=== PATIENT | female | born 1940 | race Two or more races ===

== ENCOUNTER 2017-03-27 16:02 | Inpatient (IN) | payer OTHER ==
[~2017-03-27] VITALS: Ht 162.6 cm; Wt 72.6 kg
[~2017-03-27 16:02] MED LIST: AMBIEN10 MG PO; CEFADROXIL500 MG PO; CYMBALTA20 MG; ENALAPRIL MALEA20 MG PO; ETODOLAC500 M1; FOLIC + B12 TAB1 TAB PO; FOLIC ACID1 MG PO; GLIPIZIDE5 MG PO; LEVOTHYROXINE25 MCG PO; LIRICA; MAGNESIUM SULFATE 4 MEQ/ML IJ; OPCON-A EYE DRO15 ML; PENTASA500 MG PO; PEPCID40 MG/5 ML; PERCOCET 5/3251 TAB PO; PREDNISONE10 MG PO; PROTONIX40 MG PO; TRAMADOL HCL50 MG; VASOTEC5 MG PO; XANAX0.25 MG; XARELTO10 MG PO; ZANTAC300 MG PO; [UNRECOGNIZED DRUG - REMARK]
[2017-04-09] MEDS ORDERED: FOLIC ACID1 MG PO (09:47)
[2017-04-09] MEDS ORDERED: CYMBALTA30 MG PO (09:47)
[2017-04-09] MEDS ORDERED: Neurin-Sl Tablet Sl SL (09:47)
[2017-04-09] MEDS ORDERED: LIDODERM1 EACH TOP (09:47)
[2017-04-09] MEDS ORDERED: LISINOPRIL20 MG PO (09:47)
[2017-04-09] MEDS ORDERED: LEVOTHYROXINE25 MCG PO (09:47)
[2017-04-09] MEDS ORDERED: ZANTAC300 MG PO (09:47)
[2017-04-09] MEDS ORDERED: AMBIEN10 MG PO (09:47)
[2017-04-09] MEDS ORDERED: PREDNISONE10 MG PO (09:47)
[2017-04-09] MEDS ORDERED: PYRIDOXINE HCL100 M1 PO (09:47)
== END 2017-04-09 13:17 | disposition home or self-care (01) | DRG 264 ==
LOC: ER 16:02 → MEDJ 19:48
PROC: 0JBR0ZZ Excision of Left Foot Subcutaneous Tissue and Fascia, Open Approach (ICD-10-PCS; principal; 2017-03-31)
PROC: 02HV33Z Insertion of Infusion Device into Superior Vena Cava, Percutaneous Approach (ICD-10-PCS; 2017-04-01)
DX: E11.52 Type 2 diabetes mellitus with diabetic peripheral angiopathy with gangrene (principal); I96 Gangrene, not elsewhere classified; F33.8 Other recurrent depressive disorders; N17.8 Other acute kidney failure; N18.4 Chronic kidney disease, stage 4 (severe); E27.3 Drug-induced adrenocortical insufficiency; E11.65 Type 2 diabetes mellitus with hyperglycemia; E11.621 Type 2 diabetes mellitus with foot ulcer; L97.524 Non-pressure chronic ulcer of other part of left foot with necrosis of bone; E03.8 Other specified hypothyroidism; B96.4 Proteus (mirabilis) (morganii) as the cause of diseases classified elsewhere; B95.7 Other staphylococcus as the cause of diseases classified elsewhere; Z79.52 Long term (current) use of systemic steroids; E86.0 Dehydration; E83.42 Hypomagnesemia; I12.9 Hypertensive chronic kidney disease with stage 1 through stage 4 chronic kidney disease, or unspecified chronic kidney disease; E11.22 Type 2 diabetes mellitus with diabetic chronic kidney disease; M81.0 Age-related osteoporosis without current pathological fracture; E87.6 Hypokalemia; T38.0X5A Adverse effect of glucocorticoids and synthetic analogues, initial encounter

== ENCOUNTER 2018-11-26 19:39 | Emergency (ER) | payer OTHER ==
[~2018-11-26] VITALS: Ht 157.5 cm; Wt 52.2 kg
[~2018-11-26 19:39] MED LIST changes: +CYMBALTA30 MG PO; +LIDODERM1 EACH TOP; +LISINOPRIL20 MG PO; +Neurin-Sl Tablet Sl SL; +PYRIDOXINE HCL100 M1 PO
[2018-11-26] MEDS ORDERED: PENTAZOCINE-NA1 EACH (19:51)
[2018-11-26] MEDS ORDERED: ACID CONTROL150 MG (19:52)
[2018-11-26] MEDS ORDERED: CANDESARTAN CIL16 MG (19:52)
[2018-11-26] MEDS ORDERED: PREDNISOLONE SO30 MG (19:52)
[2018-11-26] MEDS ORDERED: CYMBALTA60 MG (19:52)
[2018-11-26] MEDS ORDERED: CLONAZEPAM0.5 M1 PO (19:53)
[2018-11-26] MEDS ORDERED: LIPITOR20 MG (19:53)
[2018-11-26] MEDS ORDERED: LEVO-T25 MCG (19:53)
[2018-11-26] MEDS ORDERED: KAPSPARGO SPRIN25 MG (19:53)
[2018-11-26] MEDS ORDERED: CLOPIDOGREL BIS75 MG (19:53)
[2018-11-26] MEDS ORDERED: METFORMIN HCL500 MG (19:54)
== END 2018-11-26 22:35 | disposition home or self-care (01) ==
LOC: ER 19:39
DX: K52.89 Other specified noninfective gastroenteritis and colitis (principal); L03.116 Cellulitis of left lower limb

== ENCOUNTER 2018-11-28 15:52 | Inpatient (IN) | payer OTHER ==
[~2018-11-28] VITALS: Ht 160 cm; Wt 52.2 kg
[~2018-11-28 15:52] MED LIST changes: +ACID CONTROL150 MG; +CANDESARTAN CIL16 MG; +CILOSTAZOL100 MG PO; +CLONAZEPAM0.5 M1 PO; +CLONAZEPAM0.5 MG PO; +CLOPIDOGREL BIS75 MG; +CYMBALTA60 MG; +CYMBALTA60 MG PO; +KAPSPARGO SPRIN25 MG; +LEVO-T25 MCG; +LEVOTHYROXINE50 MCG PO; +LIDODERM1 EACH ID; +LIPITOR20 MG; +LOPRESSOR25 MG PO; +METFORMIN HCL500 MG; +NITRO-BID1 G1 TD; +PANTOPRAZOLE SO40 MG PO; +PENTAZOCINE-NA1 EACH; +PREDNISOLONE SO30 MG; +SLOW-MAG64 M1 PO; +SYNTHROID50 MCG PO
--- NOTE | 2018-11-28 16:15 | NUR ---
PACIENTE ALERTA Y ORIENTADA POR ELOY ESFERAS QUIEN VENIR POR EDEMA EN PIE LT. REFIERE NO TRAUMA.
--- NOTE | 2018-11-28 18:32 | NUR ---
PACIENTE ALERTA Y ORIENTADA POR ELOY ESFERAS. MS. CLANCY ORIENTA A PACIENTE SOBRE PROCEDIMEINTO Y TX, REFIERE ENTENDER. EXTRAE MUESTRAS DE LABORATOIRO CON MEDIDAS ASEPTICAS Y ADMINISTRA MEDICAMENTOS MÓNICA ORDEN MEDICA.
== END 2018-12-02 17:23 | DRG 638 ==
LOC: ER 15:52 → SURH 22:58 → MEDJ 12-02 13:42
PROVIDERS: ADMIT Specialist
PROC: B44HZZZ Ultrasonography of Bilateral Lower Extremity Arteries (ICD-10-PCS; principal; 2018-11-28)
PROC: 8E0ZXY6 Isolation (ICD-10-PCS; 2018-11-29)
PROC: 30233N1 Transfusion of Nonautologous Red Blood Cells into Peripheral Vein, Percutaneous Approach (ICD-10-PCS; 2018-11-30)
DX: E11.628 Type 2 diabetes mellitus with other skin complications (principal); L03.116 Cellulitis of left lower limb; K50.10 Crohn's disease of large intestine without complications; E27.49 Other adrenocortical insufficiency; B37.41 Candidal cystitis and urethritis; E03.8 Other specified hypothyroidism; E11.22 Type 2 diabetes mellitus with diabetic chronic kidney disease; D63.8 Anemia in other chronic diseases classified elsewhere; I12.9 Hypertensive chronic kidney disease with stage 1 through stage 4 chronic kidney disease, or unspecified chronic kidney disease; I77.89 Other specified disorders of arteries and arterioles; N18.3 Chronic kidney disease, stage 3 (moderate); F32.89 Other specified depressive episodes; A49.02 Methicillin resistant Staphylococcus aureus infection, unspecified site; Z79.4 Long term (current) use of insulin; Z79.52 Long term (current) use of systemic steroids; Z88.6 Allergy status to analgesic agent

== ENCOUNTER 2018-12-13 12:39 | Emergency (ER) | payer OTHER ==
[~2018-12-13] VITALS: Ht 152.4 cm; Wt 52.2 kg
== END 2018-12-13 22:01 | disposition home or self-care (01) ==
LOC: ER 12:39
DX: M10.031 Idiopathic gout, right wrist (principal)

== ENCOUNTER 2019-06-04 17:53 | Emergency (ER) | payer OTHER ==
[~2019-06-04] VITALS: Ht 157.5 cm; Wt 54.9 kg
[2019-06-04] MEDS ORDERED: LIDOPATCH1 EACH (18:16)
== END 2019-06-04 21:34 | disposition home or self-care (01) ==
LOC: ER 17:53
DX: N39.0 Urinary tract infection, site not specified (principal); R19.7 Diarrhea, unspecified; E86.0 Dehydration; R10.84 Generalized abdominal pain

== ENCOUNTER 2019-10-11 12:43 | Inpatient (IN) | payer OTHER ==
[~2019-10-11] VITALS: Ht 157.5 cm; Wt 54.4 kg
[~2019-10-11 12:43] MED LIST changes: +LIDOPATCH1 EACH
[2019-10-11] MEDS ORDERED: PENTOXIFYLLINE400 MG (13:06)
[2019-10-11] MEDS ORDERED: [UNRECOGNIZED DRUG - OTHER] (13:06)
--- NOTE | 2019-10-11 13:07 | NUR ---
SE RECIBE PTE ALERTA Y ORIENTADA X3,REFIERE TENER DIARREAS ,DOLOR ABOMINAL , VOMITO.
--- NOTE | 2019-10-11 14:23 | NUR ---
SE EDCUAA PTE SOBRE TX MEDICO ESTA REFIERE ENTENDER. SE MENDOZA MUESTRAS DE LAB UTILIZANDO MEDIAS ASEPTICAS. SE COLOCA H/L A PTE Y SE CONTINUA MONITORIANDO POR CAMBIOS.
== END 2019-10-21 12:48 | disposition home or self-care (01) | DRG 683 ==
LOC: ER 12:43 → MEDJ 17:05
PROVIDERS: ADMIT Internal Medicine; ATTEND Internal Medicine
PROC: BW21Y0Z Computerized Tomography (CT Scan) of Abdomen and Pelvis using Other Contrast, Unenhanced and Enhanced (ICD-10-PCS; principal; 2019-10-12)
PROC: 8E0ZXY6 Isolation (ICD-10-PCS; 2019-10-13)
DX: N17.8 Other acute kidney failure (principal); E27.49 Other adrenocortical insufficiency; K50.90 Crohn's disease, unspecified, without complications; F33.9 Major depressive disorder, recurrent, unspecified; K52.89 Other specified noninfective gastroenteritis and colitis; K52.9 Noninfective gastroenteritis and colitis, unspecified; K80.80 Other cholelithiasis without obstruction; E83.42 Hypomagnesemia; E03.8 Other specified hypothyroidism; E87.8 Other disorders of electrolyte and fluid balance, not elsewhere classified; E86.0 Dehydration; E87.6 Hypokalemia; E11.65 Type 2 diabetes mellitus with hyperglycemia; Z20.828 Contact with and (suspected) exposure to other viral communicable diseases; Z79.4 Long term (current) use of insulin

== ENCOUNTER 2019-12-09 16:54 | Emergency (ER) | payer OTHER ==
[~2019-12-09] VITALS: Ht 157.5 cm; Wt 52.2 kg
[~2019-12-09 16:54] MED LIST changes: +PENTOXIFYLLINE400 MG; +[UNRECOGNIZED DRUG - OTHER]
[2019-12-09] MEDS ORDERED: LANTUS (17:51)
== END 2019-12-09 20:58 | disposition home or self-care (01) ==
LOC: ER 16:54
DX: E11.65 Type 2 diabetes mellitus with hyperglycemia (principal)

== ENCOUNTER 2019-12-18 11:25 | Emergency (ER) | payer OTHER ==
[~2019-12-18] VITALS: Ht 160 cm; Wt 65.8 kg
[~2019-12-18 11:25] MED LIST changes: +LANTUS
== END 2019-12-18 18:52 | disposition home or self-care (01) ==
LOC: ER 11:25
DX: K52.89 Other specified noninfective gastroenteritis and colitis (principal); K50.90 Crohn's disease, unspecified, without complications; E83.51 Hypocalcemia; E87.6 Hypokalemia

== ENCOUNTER 2020-07-16 14:30 | Inpatient (IN) | payer OTHER ==
[~2020-07-16] VITALS: Ht 157.5 cm; Wt 49.9 kg
[2020-07-16] MEDS ORDERED: ATORVASTATIN CA10 MG PO (14:47)
[2020-07-16] MEDS ORDERED: ALPRAZOLAM ODT0.5 MG PO (14:47)
[2020-07-16] MEDS ORDERED: TIROSINT25 MCG PO (14:48)
[2020-07-16] MEDS ORDERED: HYOSCYAMINE0.125 M2 PO (14:48)
[2020-07-16] MEDS ORDERED: TOPROL XL50 M1 PO (14:48)
[2020-07-16] MEDS ORDERED: MILLIPRED5 MG PO (14:48)
[2020-07-16] MEDS ORDERED: ALDACTONE25 MG PO (14:49)
--- NOTE | 2020-07-16 14:49 | NUR ---
PACIENTE EN S[place] DE [place] ALERTA Y ORIENTADA, ACOMPANADA DE FAMILIAR. REFIERE DOLOR EN LA PIERNA IZQUIERDA, LA MISMA SE OBSERVA HINCHADA. PACIENTE CHRISTIE REFERIDO DE DR. ADALID ANDERSON PARA SER HOSPITALIZADA. SE KEVEN S/V. SE UBICA EN JEREMIAH DE OBSERVACION PARA EVALUACION MEDICA.
--- NOTE | 2020-07-16 15:17 | NUR ---
SE ORIENTA PTE SOBRE TX MEDICO EL CUAL REFIERE ENTENDER.SE LE EXTRAEN MUESTRAS BAJO MEDIDAS ASEPTICAS,SE CANALIZA Y SE ADMINISTRAN MEDICAMENTOS MÓNICA ORDEN MEDICA.SE NOTIFICA PICC LINE A MS TOM.
--- NOTE | 2020-07-16 19:45 | NUR ---
SE ASISTE PTE EN USO DE CARMEN.
[2020-07-17] MEDS ORDERED: LANTUS SOL100 UNIT/1 (16:47)
[2020-07-17] MEDS ORDERED: CLOTRIMAZOLE-BE15 G1 (16:47)
[2020-07-17] MEDS ORDERED: SERTRALINE HCL50 MG (16:47)
[2020-07-17] MEDS ORDERED: PREDNISONE10 M2 (16:47)
[2020-07-17] MEDS ORDERED: CLINDAMYCIN HC300 MG (16:47)
[2020-07-17] MEDS ORDERED: DICLOFENAC SODI50 MG (16:48)
== END 2020-08-02 11:03 | disposition home or self-care (01) | DRG 603 ==
LOC: ER 14:30 → SEC-K 20:59 → SURG 20:59 → SURH 07-18 18:38
PROVIDERS: ADMIT Internal Medicine; ATTEND Internal Medicine
PROC: 0HBLXZX Excision of Left Lower Leg Skin, External Approach, Diagnostic (ICD-10-PCS; principal; 2020-07-18)
PROC: 02HV33Z Insertion of Infusion Device into Superior Vena Cava, Percutaneous Approach (ICD-10-PCS; 2020-07-19)
PROC: 30233N1 Transfusion of Nonautologous Red Blood Cells into Peripheral Vein, Percutaneous Approach (ICD-10-PCS; 2020-07-26)
DX: L03.115 Cellulitis of right lower limb (principal); K50.90 Crohn's disease, unspecified, without complications; L97.829 Non-pressure chronic ulcer of other part of left lower leg with unspecified severity; E27.49 Other adrenocortical insufficiency; F33.9 Major depressive disorder, recurrent, unspecified; N17.8 Other acute kidney failure; E87.0 Hyperosmolality and hypernatremia; L88 Pyoderma gangrenosum; E11.622 Type 2 diabetes mellitus with other skin ulcer; E11.65 Type 2 diabetes mellitus with hyperglycemia; E03.8 Other specified hypothyroidism; D64.9 Anemia, unspecified; Z79.52 Long term (current) use of systemic steroids; Z20.822 Contact with and (suspected) exposure to COVID-19; I12.9 Hypertensive chronic kidney disease with stage 1 through stage 4 chronic kidney disease, or unspecified chronic kidney disease; N18.32 Chronic kidney disease, stage 3b; E86.0 Dehydration; I80.8 Phlebitis and thrombophlebitis of other sites; Z79.4 Long term (current) use of insulin

== ENCOUNTER 2020-08-06 09:29 | Emergency (ER) | payer OTHER ==
[~2020-08-06] VITALS: Ht 149.9 cm; Wt 55.3 kg
[~2020-08-06 09:29] MED LIST changes: +ALDACTONE25 MG PO; +ALPRAZOLAM ODT0.5 MG PO; +ATORVASTATIN CA10 MG PO; +CLINDAMYCIN HC300 MG; +CLOTRIMAZOLE-BE15 G1; +DICLOFENAC SODI50 MG; +HYOSCYAMINE0.125 M2 PO; +LANTUS SOL100 UNIT/1; +MILLIPRED5 MG PO; +PREDNISONE10 M2; +SERTRALINE HCL50 MG; +TIROSINT25 MCG PO; +TOPROL XL50 M1 PO
[2020-08-06] MEDS ORDERED: PREDNISONE20 M1 PO (17:11)
[2020-08-06] MEDS ORDERED: ULTRAM50 MG PO (17:54)
== END 2020-08-06 18:19 | disposition home or self-care (01) ==
LOC: ER 09:29
DX: K50.918 Crohn's disease, unspecified, with other complication (principal); N28.89 Other specified disorders of kidney and ureter; R10.31 Right lower quadrant pain; I48.0 Paroxysmal atrial fibrillation

== ENCOUNTER 2020-08-08 17:46 | Emergency (ER) | payer OTHER ==
[~2020-08-08] VITALS: Ht 157.5 cm; Wt 50.8 kg
[~2020-08-08 17:46] MED LIST changes: +PREDNISONE20 M1 PO; +ULTRAM50 MG PO
== END 2020-08-09 08:17 | disposition home or self-care (01) ==
LOC: ER 17:46
DX: K59.09 Other constipation (principal); E83.42 Hypomagnesemia; R10.84 Generalized abdominal pain; M54.89 Other dorsalgia

== ENCOUNTER 2021-10-08 14:12 | Emergency (ER) | payer OTHER ==
[~2021-10-08] VITALS: Ht 160 cm; Wt 54.4 kg
[2021-10-08] MEDS ORDERED: PANTOPRAZOLE SO40 MG PO (14:23)
[2021-10-08] MEDS ORDERED: LEVOTHYROXINE25 MC1 PO (14:23)
[2021-10-08] MEDS ORDERED: METOPROLOL SUCC50 MG PO (14:24)
== END 2021-10-08 20:06 | disposition home or self-care (01) ==
LOC: ER 14:12
DX: N39.0 Urinary tract infection, site not specified (principal); Z91.041 Radiographic dye allergy status; Z91.013 Allergy to seafood; Z88.8 Allergy status to other drugs, medicaments and biological substances; E06.3 Autoimmune thyroiditis; K50.90 Crohn's disease, unspecified, without complications